=== PATIENT | male | born 1960 | race African-American/Black ===

== ENCOUNTER 2020-02-07 12:17 | Outpatient (CLI) | payer MEDICARE, SELFPAY ==
--- NOTE | ~2020-02-07 | CT_ITS ---
EXAMINATION:CT lung screening DATE: 02/07/2020 12:36 INDICATION: Personal history of tobacco dependence. Current smoker with 35 pack year history. TECHNIQUE: Computed tomography (CT) of the chest was performed without intravenous contrast. Automate d exposure control and iterative reconstruction technique were employed. The dose-length product (DLP ) was 89.52 mGy-cm. COMPARISON: None. FINDINGS: There is mild emphysema. There is mild atelectasis bilaterally. No pleural effusion. There is a 15 mm subcutaneous mass in left anterior chest superiorly, likely a sebaceous cyst. The heart si ze is normal. No pericardial effusion. There is a 17 mm cyst in left kidney. There is a 5.2 cm cystic mass in the tail of the pancreas. There is a 15 mm mass in right adrenal gland measuring low-attenua tion, consistent with an adenoma. Calcifications in the liver consistent with old granulomatous disea se. There is mild thoracic spondylosis. IMPRESSION: 1. Lung-RADS category 1S: Negative. Continue annual screening with noncontrast low-dose chest CT in 1 2 months. 2. 5.2 cm cystic mass in the tail of the pancreas, which may be a pseudocyst or a neoplasm. Abdomen M RI without and with contrast is recommended. Reviewed, dictated and finalized at location B. [employer] IMPRESSION: 1. Lung-RADS category 1S: Negative. Continue annual screening with noncontrast low-dose chest CT in 12 months. 2. 5.2 cm cystic mass in the tail of the pancreas, which may be a pseudocyst or a neoplasm. Abdomen MRI without and with contrast is recommended.
== END 2020-02-07 12:18 | disposition home or self-care (01) ==
PROVIDERS: Visit Provider Family Medicine
DX: F17.210 Nicotine dependence, cigarettes, uncomplicated (principal)
CPT/HCPCS: G0297

== ENCOUNTER 2020-03-27 10:18 | Outpatient (CLI) | payer MEDICARE, SELFPAY ==
[2020-03-27 11:26] LABS: Add Urine Microscopic? YES; Appearance Urine Clear (Clear); Bilirubin Urine Negative (Negative); Blood Urine Negative (Negative); Color Urine Yellow (Yellow); Glucose Urine UA Negative (Negative); Ketones Urine Negative (Negative); Leukocyte Esterase Ur Negative LEU/UL (NEGATIVE); Mucus Urine Rare /lpf; Nitrate Urine Negative (Negative); Protein Urine 3+ mg/dL (Negative); Specific Grav Ur 1.012 (1.001-1.035); Squamous Epithelial Cell Urine Rare /hpf (Few); Urobilinogen Urine Negative mg/dL (<2.0); WBC Urine 0-3 /hpf (0-3)
[2020-03-27 11:39] LABS: Basophils Percent Auto 0.5 % (0.2-1.2); Eosinophils Absolute Auto 0.1 K/mm3 (0-0.3); Hematocrit 37.3 % (42.0-52.0); Immature Granulocyte Absolute 0.03 K/mm3 (0.00-0.031); Immature Granulocyte Percent A 0.4 % (0-0.5); Lymphocytes Absolute Auto 2.14 K/mm3 (0.9-3.2); Lymphocytes Percent Auto 25.5 % (18.3-44.2); Mean Corpuscular HGB Conc 34.9 g/dl (32-36); Mean Corpuscular Hemoglobin 29.5 pg (26-34); Mean Corpuscular Volume 84.8 fl (80-100); Mean Platelet Volume 10.1 fl (7.4-10.4); Monocytes Absolute Auto 0.6 K/mm3 (0.1-0.6); Monocytes Percent Auto 7.3 % (2.6-8.5); Neutrophils Absolute Auto 5.5 K/mm3 (1.3-6.7); Neutrophils Percent Auto 65.3 % (45.5-73.1); Platelet Count Result 214 k/mm3 (150-375); White Blood Count 8.4 K/mm3 (4.5-10.0)
[2020-03-27 11:55] LABS: Anion Gap 6 mmol/L (8-16); Blood Urea Nitrogen 23 mg/dL (9-20); Calcium 9.3 mg/dL (8.4-10.2); Carbon Dioxide 26 mmol/L (22-30); Chloride 107 mmol/L (98-107); Estimated Glomerular Filt Rate 31; Glucose 100 mg/dL (75-110); Phosphorus 3.4 mg/dL (2.5-4.5); Potassium 3.4 mmol/L (3.4-5.0); Sodium 139 mmol/L (137-145)
[2020-03-27 12:05] LABS: Parathyroid Intact 89.4 pg/mL (7.5-53.5)
[2020-03-27 12:45] LABS: Creatinine Urine 132.4 mg/dL
[2020-03-27 13:39] LABS: MALB Creatinine Ratio 845.5 mg/g (0-30); Microalbumin Urine Random 1119.4 mg/L (0-16.7)
== END 2020-03-27 10:19 | disposition home or self-care (01) ==
DX: N18.30 Chronic kidney disease, stage 3 unspecified (principal)
CPT/HCPCS: 36415; 80069; 81001; 82043; 83970; 85025

== ENCOUNTER 2020-09-11 09:46 | Outpatient (CLI) | payer MEDICARE, MEDICAID, SELFPAY ==
--- NOTE | ~2020-09-11 | MR_ITS ---
EXAMINATION: MR abdomen wo con DATE: 09/11/2020 11:03 INDICATION: Pancreatic mass. TECHNIQUE: Magnetic resonance imaging (MRI) of the abdomen was performed without intravenous contrast due to decreased kidney function. Sequences included coronal T2-weighted FS FSE, coronal and axial F S FIESTA, axial T2-weighted FSE, coronal LAVA-flex, axial STIR FSE, axial DWI, axial dual-echo T1-luisa ghted FSPGR, and axial LAVA. COMPARISON: Chest CT 02/07/2020 FINDINGS: The liver, gallbladder, and spleen are normal. There is a 5.2 cm cystic mass in the tail of the pancr eas with thickened wall. The pancreatic duct is normal in caliber in the head and body of the pancrea s. There is stable thickening of the adrenal glands, likely benign. There are cysts in the kidneys me asuring up to 2.6 cm on the left. There are no dilated loops of bowel. There are no pathologically en larged lymph nodes. There is no free intraperitoneal fluid. IMPRESSION: 1. 5.2 cm cystic mass with thickened wall in the tail of the pancreas, stable from 02/07/2020. The di fferential diagnosis includes pseudocyst, intraductal papillary mucinous neoplasm (IPMN), mucinous cy stic neoplasm (MCN), serous cystadenoma, and neuroendocrine tumor. Surgical consultation is recommend ed. Reviewed, dictated and finalized at location A. IMPRESSION: 1. 5.2 cm cystic mass with thickened wall in the tail of the pancreas, stable f rom 02/07/2020. The differential diagnosis includes pseudocyst, intraductal pap illary mucinous neoplasm (IPMN), mucinous cystic neoplasm (MCN), serous cystade noma, and neuroendocrine tumor. Surgical consultation is recommended.
[2020-09-11 10:14] LABS: Estimated Glomerular Filt Rate 34
== END 2020-09-11 09:47 | disposition home or self-care (01) ==
LOC: ANHIMG 09:49
PROVIDERS: PCP Family Medicine; Visit Provider Family Medicine
DX: K86.89 Other specified diseases of pancreas (principal)
CPT/HCPCS: 74181